=== PATIENT | female | born 1980 | race Caucasian/White ===

== ENCOUNTER 2019-08-24 16:29 | Emergency (ER) | payer OTHER ==
[~2019-08-24] VITALS: Ht 175.3 cm; Wt 90.7 kg
[2019-08-24 16:34] VITALS: BP 144/89
--- NOTE | 2019-08-24 16:40 | NUR ---
c/o occasional dry cough, lethargic, sore throat x 5 days s/p exposed to covid positive patient. Patient a/ox4, breathing even and unlabored, no sob noted, needs attended, kept comfortable. Attached to the monitoring tech.
--- NOTE | 2019-08-24 18:59 | NUR ---
Patient a/ox4, breathing even and unlabored, no sob noted, needs attended. Ambulatory with steady gait. Patient discharged to home in stable condition. Written and verbal after care instructions given. Patient verbalizes understanding of instruction.
== END 2019-08-24 19:02 | disposition home or self-care (01) ==
LOC: ER 16:29
DX: B34.9 Viral infection, unspecified (principal); R05 Cough; J02.9 Acute pharyngitis, unspecified; Z20.828 Contact with and (suspected) exposure to other viral communicable diseases
CPT/HCPCS: 36415; 71045-TC